=== PATIENT | female | born 1995 | race Two or more races ===

== ENCOUNTER 2017-09-27 19:38 | Emergency (ER) | payer BC ==
[~2017-09-27] VITALS: Ht 170.2 cm; Wt 63.5 kg
[2017-09-28] MEDS ORDERED: PYRIDIUM DS200 MG PO (06:23)
[2017-09-28] MEDS ORDERED: BACTRIM DS TAB1 EACH PO (06:23)
[2017-09-28] MEDS ORDERED: KETO10TA2 PO ×2 (06:24→06:25)
== END 2017-09-28 06:32 | disposition home or self-care (01) ==
LOC: ER 19:38
DX: K59.09 Other constipation (principal); R10.31 Right lower quadrant pain